=== PATIENT | male | born 1955 | race Caucasian/White ===

== ENCOUNTER 2024-09-18 08:21 | Emergency (ER) | payer OTHER ==
[~2024-09-18] VITALS: Ht 167.6 cm; Wt 91.0 kg
[2024-09-18 08:25] VITALS: O2SAT 99
[2024-09-18] MEDS ORDERED: BACITRACIN ZINC OINT UDPKT TOP ONE (08:45)
[2024-09-18] MEDS ORDERED: LIDOCAINE HCL/EPINEPHRINE 1%-EPI 1:100,000 20ML VIAL INFIL ONE (08:45)
[2024-09-18] MEDS: TETANUS, DIPHTHERIA, PERTUSSIS VAC/PF 0.5ML (>10YR OLD) IM ONE (08:56)
[2024-09-18 10:59] VITALS: BP 144/70; PULSE 83; RESP 14; TEMP 36.7; O2SAT 97
== END 2024-09-18 11:03 | disposition home or self-care (01) ==
LOC: ER 08:21
DX: S01.81XA Laceration without foreign body of other part of head, initial encounter (principal); E11.9 Type 2 diabetes mellitus without complications; Z86.73 Personal history of transient ischemic attack (TIA), and cerebral infarction without residual deficits; W01.0XXA Fall on same level from slipping, tripping and stumbling without subsequent striking against object, initial encounter; Y93.89 Activity, other specified; Y92.89 Other specified places as the place of occurrence of the external cause; Y99.8 Other external cause status
CPT/HCPCS: 99285; 70450; 90715; 12013; 90471; J2004